=== PATIENT | male | born 1970 | race Caucasian/White ===

== ENCOUNTER 2018-07-11 18:02 | Emergency (ER) | payer OTHER ==
[2018-07-11] MEDS ORDERED: Lidocaine 1% 20 ML MDV INJECT ONE (19:40)
[2018-07-11] MEDS ORDERED: Bacitracin Oint 1 GM U/D Packet TOP ONE (19:41)
--- NOTE | 2018-07-11 20:18 | EDM.PDOC ---
ED HPI GENERAL MEDICAL PROBLEM - General Chief Complaint: Laceration Stated Complaint: cut finger with filet knife Time Seen by Provider: 07/11/18 20:11 Source of Information: Reports: Patient History Limitations: Reports: No Limitations - History of Present Illness INITIAL COMMENTS - FREE TEXT/NARRATIVE: pt had a crepe box tender with a new blade in it. It slipped and he cut the inner aspect of his left ring finger. He did cut through the nail and the the side of the finger 2 inches in length. He has normal sensation at the tip and full range of motion. Onset: Today, Sudden Duration: Hour(s): Location: Reports: Upper Extremity, Left Associated Symptoms: Reports: No Other Symptoms Left Finger-Index Pain Score (Numeric/FACES): 4 - Related Data Allergies Allergy/AdvReac Type Severity Reaction Status Date / Time No Known Allergies Allergy Verified 07/11/18 18:23 Home Meds: Home Meds NK [No Known Home Meds] 02/24/14 [History] Past Medical History - Infectious Disease History Infectious Disease History: Reports: None - Past Surgical History Head Surgeries/Procedures: Reports: None HEENT Surgical History: Reports: None Dermatological Surgical History: Reports: None Social & Family History - Tobacco Use Smoking Status *Q: Current Every Day Smoker Years of Tobacco use: 30 Packs/Tins Daily: 1 Second Hand Smoke Exposure: Yes - Caffeine Use Caffeine Use: Reports: Coffee, Tea - Alcohol Use Days Per Week of Alcohol Use: 7 Number of Drinks Per Day: 3 Total Drinks Per Week: 21 - Recreational Drug Use Recreational Drug Use: No ED ROS GENERAL - Review of Systems Review Of Systems: See Below Constitutional: Reports: No Symptoms HEENT: Reports: No Symptoms Respiratory: Reports: No Symptoms Cardiovascular: Reports: No Symptoms Endocrine: Reports: No Symptoms GI/Abdominal: Reports: No Symptoms : Reports: No Symptoms Musculoskeletal: Reports: Other (lacertion of the left ring finger. ) ED EXAM, SKIN/RASH Exam: See Below Text/Narrative:: pt cut his left ring finger with a blade on a crepe box tender. Exam Limited By: No Limitations General Appearance: Alert, Moderate Distress Ears: Normal TMs Throat/Mouth: Normal Inspection Head: Atraumatic Neck: Normal Inspection Extremities: Other (pt has a 2 inch lacertion on the inner aspect of his left ring finger he has normal sensation and normal motion of the finger. ) Course - Vital Signs Last Recorded V/S: Last Vital Signs Temp 36.3 C 07/11/18 18:21 Pulse 95 07/11/18 18:52 Resp 18 07/11/18 18:21 BP 139/94 H 07/11/18 18:52 Pulse Ox 95 07/11/18 18:52 - Orders/Labs/Meds Meds: Medications Discontinued Medications Generic Name Dose Route Start Last Admin Trade Name Tamia PRN Reason Stop Dose Admin Bacitracin 1 dose 07/11/18 19:41 07/11/18 20:23 Bacitracin Oint 1 Gm TOP 07/11/18 19:42 1 dose ONETIME ONE Administration Lidocaine HCl 20 ml 07/11/18 19:40 07/11/18 20:23 Xylocaine 1% INJECT 07/11/18 19:41 20 ml ONETIME ONE Administration - Re-Assessments/Exams Free Text/Narrative Re-Assessment/Exam: 07/11/18 20:15 the area was infiltrated with lidocaine and scrubbed well. It was irrigated with saline. The wound was brought together in a layered fashion. The subq and nail were brought together with 5-0 chromic. The skin was closed with 5-0 prolene. He was dressed with bacatracin and a fluffy dressing today. He will have a splint for protection later. Departure - Departure Time of Disposition: 20:18 Disposition: Home, Self-Care 01 Condition: Fair Clinical Impression: Laceration - Discharge Information Instructions: Laceration Care, Adult, [id number] Referrals: PCP,None [Primary Care Provider] - Forms: ED Department Discharge Care Plan Goals: elevate hand, norco #6 1 tab q6h prn for pain, keflex 500mg tid for 5 days, suture removal in 8-9 days, keep dry no further ointments, use the splint for protection. Follow up appt on Tuesday ar [facility] to be sure the flap is maintaining a good color.
== END 2018-07-11 20:28 | disposition home or self-care (01) ==
LOC: JP.ED 18:02
DX: S61.315A Laceration without foreign body of left ring finger with damage to nail, initial encounter (principal); F17.210 Nicotine dependence, cigarettes, uncomplicated; W27.8XXA Contact with other nonpowered hand tool, initial encounter
CPT/HCPCS: 11760; 99283; J2001